=== PATIENT | male | born 1950 | race Caucasian/White ===

== ENCOUNTER 2024-03-17 04:58 | Emergency (ER) | payer OTHER, SELFPAY ==
[2024-03-17 05:01] VITALS: BP 131/84
[2024-03-17 05:59] VITALS: BP 151/67; BMI 21.5
--- NOTE | 2024-03-17 07:22 | ED.GENMED ---
History of Present Illness
General
Chief Complaint: Musculo-Skeletal Complaint
Source: patient
Exam Limitations: none
Time Seen by Provider: 03/17/24 07:01
Nursing documentation reviewed up to this point in time: agreed with
History of Present Illness
History of Present Illness:
The patient is a very pleasant 73-year-old man who just removal of an ingrown toenails from his right big toe done by his branch lending manager this past morning, which was 4 days ago. He comes in stating that the pain has been so severe over the
last few nights, despite taking NSAIDs and Tylenol, that he has been unable to sleep. Patient reports tingling at the bottom of his right big toe as well as radiating pain down the bottom of his right foot towards his ankle. Patient denies fever
and chills. He denies any active drainage or blood from the dressing. Patient reports that he has had multiple ingrown toe nails removed and he always has 'lots of bleeding' with the procedure.
Past History
Past History
ED Past Medical History: Other (Hemorrhoids)
ED Past Surgical History: Other (Hernia surgery)
Social History
Tobacco: Non-smoker
Alcohol: None
Drug: None
Personal:
Living: with family
Employment: Other
Family History
Family History: Other
Review of Systems
Review of Systems
Allergies reviewed?: Yes
All Other Systems: ROS reviewed and negative except as documented in HPI and ROS
Constitutional: Reports no symptoms
EENT: Reports no symptoms
Respiratory: Reports no symptoms
Cardiac: Reports no symptoms
: Reports no symptoms
Musculoskeletal: Reports muscle stiffness
Skin: Reports no symptoms
Neurological: Reports no symptoms
Endocrine: Reports no symptoms
Hematologic/Lymphatic: Reports no symptoms
Psychiatric: Reports no symptoms
Phy Exam
Physical Exam
Physical Exam:
Physical Exam
General: no apparent distress, not acutely ill. Well and comfortable appearing
Neck: supple.
Heart: s1/s2 regular rate and rhythm, strong pulses in right foot
Lungs: no acute respiratory distress.
Abdomen: Soft
Neuro: alert and oriented. no focal neurological deficits
Skin: Very small amount of erythema along bottom of right big toe as well as medial aspect of right big toe. No active bleeding. No active drainage
Psychiatric: well kept. interactive and cooperative
Extremities: no edema. No streaking redness of foot, both top and bottom. No obvious swelling or deformity of right big toe
Course
Orders/Labs/Results
Orders:
Orders
03/17/24 07:21
Clindamycin HCl [Cleocin] 300 mg PO NOW STA
Oxycodone/Acetaminophen [Percocet 5/325] 1 tablet PO NOW STA
Vital Signs
Initial and Last Documented VS:
Initial Vital Signs
Temp Pulse Resp BP Pulse Ox
98.1 F 70 16 131/84 100
03/17/24 05:01 03/17/24 05:01 03/17/24 05:01 03/17/24 05:01 03/17/24 05:01
Last Documented Vital Signs
Temp Pulse Resp BP Pulse Ox
98.1 F 67 14 151/67 99
03/17/24 05:01 03/17/24 05:59 03/17/24 05:59 03/17/24 05:59 03/17/24 05:59
MDM/Problems Addressed
Differential Diagnosis Includes:
Drink recirculation due to tightness of bandage around right big toe, right big toe hematoma, right pinky toe abscess, right big toe cellulitis
MDM/Problems Addressed:
Patient presents with acute pain of right big toe after ingrown toenail removed
Acute Exacerbation and/or Progression of Chronic Illness:
Patient is acutely hypertensive, likely due to pain and anxiety
*Pulse Oximetry
Patient hypoxic: no
*EKG
Interpreted by ED Provider?: NA
*Coverstitch Machine Operator Interpretation
Rate: Coverstitch Machine Operator- N/A
*Critical Care Note
Total Time (30-74mins, 75-104mins- exclusive of procedures): Not Applicable
Data Reviewed
Review of Other/Old Records Reveals: Radiology Studies (Left foot x-ray reviewed by me from August 2023 which shows no soft tissue infection)
Source: patient and spouse
Patient Management
Social determinants of health affecting care: Living situation and Strong social support
Escalation/DeEscalation of care consider admission/obs:
Patient's dressing removed by me. There is no active bleeding, no purulent discharge, and no streaking redness. There is minimal redness around the wound site. Therefore, we will start patient on clindamycin for possible early right big toe
cellulitis. Patient due to see podiatry tomorrow morning which he reassures me that he will follow-up with his appointment. Patient has excellent pulses of his right foot. Wound redressed by me with gauze and Curlex
ED Attending Note
-
Portions of this chart may have been created with voice recognition software.� Occasional wrong word or��sound alike� substitutions may have occurred due to the inherent limitations of voice recognition software.
Discharge Plan
Departure
Patient Disposition: Home (Routine Discharge)
Date of Disposition: 03/17/24
Time of Disposition: 07:22
Patient with high blood pressure during this ER visit?: Yes
Condition: Good
Covid-19: Not Applicable
Discharge Problem:
Ingrowing toenail of right foot
Instructions: Ingrown Toenail ED
Prescriptions:
New
clindamycin HCl 300 mg capsule
300 mg PO TID 7 Days Qty: 21 0RF
oxycodone 5 mg tablet
5 mg PO BID PRN (Reason: Pain) Qty: 5 0RF
No Action
Vitamin K2 M7
1 tab PO DAILY
cholecalciferol (vitamin D3) [Vitamin D3] 25 mcg (1,000 unit) Capsule
25 mcg PO Q48H
PreserVision AREDS-2 250-90-40-1 mg Capsule
1 tab PO Q48H
polyethylene glycol 3350 [Miralax] 17 gram Powder In Packet
8.5 g PO DAILY@1500
Referrals:
Feng Porter DO [Family Provider] -
Activity Restrictions/Additional Instructions:
Follow-up with your branch lending manager as scheduled tomorrow morning.
Interventions
Interventions:
*Risk Screen - Suicide Last Done: 03/17/24 05:01
*General Assessment Last Done: 03/17/24 05:01
*Neglect/Abuse Screening Last Done: 03/17/24 05:01
ED- Fall Risk Assessment Last Done: 03/17/24 05:01
*ED COVID-19 Vaccine History Last Done: 03/17/24 05:01
*Nursing Disposition Last Done: 03/17/24 07:35
ED-Musculoskeletal Assessment Last Done: 03/17/24 05:59
Discharge Date and Time
Discharge Date/Time: 03/17/24 07:35
Print Language: CHADIAN
[2024-03-17] MEDS: PERCOCET 5/325 1 TABLET PO (07:35)
[2024-03-17] MEDS: CLEOCIN 300 MG PO (07:35)
== END 2024-03-17 07:35 | disposition home or self-care (01) ==
LOC: EMR 04:58
PROVIDERS: EMERGENCY PHYSICIAN Emergency Medicine; FAMILY PHYSICIAN Family Medicine
DX: L60.0 Ingrowing nail (principal); R03.0 Elevated blood-pressure reading, without diagnosis of hypertension
CPT/HCPCS: 99283

== ENCOUNTER 2024-05-13 17:40 | Emergency (ER) | payer OTHER, SELFPAY ==
[2024-05-13 17:52] VITALS: BP 132/78
--- NOTE | 2024-05-13 18:29 | ED.GENMED ---
History of Present Illness
General
Chief Complaint: Skin Problem
Source: patient
Time Seen by Provider: 05/13/24 17:56
History of Present Illness
History of Present Illness:
73-year-old male presenting emergency department for evaluation after he was moving a bookshelf and a piece of glass excellently cut his right hand in 3 separate areas. Patient states that due to the bleeding decided to come to the ER for further
evaluation. He is right-hand dominant. Tetanus is up-to-date.
Past History
Past History
ED Past Medical History: Other (Hemorrhoids)
ED Past Surgical History: Other (Hernia surgery)
Social History
Tobacco: Non-smoker
Alcohol: None
Drug: None
Personal:
Living: with family
Employment: Other
Family History
Family History: Other
Review of Systems
Review of Systems
All Other Systems: ROS reviewed and negative except as documented in HPI and ROS
Phy Exam
Physical Exam
Physical Exam:
GENERAL: Alert , in no apparent distress
EYE: conjunctiva clear
Head: Normocephalic atraumatic
NECK: Supple,
ENT: mmm.
LUNGS: no acute respiratory distress
NEUROLOGICAL: Alert and oriented
SKIN: Warm and dry, 3 separate small lacerations. 1st laceration just proximal to 2nd MCP, U-shaped, superficial, no active bleeding, measures 9mm in size. 2nd laceration in between web spacing of 2nd and 3rd digit measuring 5mm in size. 3rd
laceration is proximal to 5th MCP. 3mm, superficial and without active bleeding
MUSCULOSKELETAL: well perfused.
PSYCH: Normal and appropriate interaction.
Scores
Heart Failure Risk
Heart Failure Risk Score: Not Applicable
Heart Score for Chest Pain Patients
STEMI patient?: Not applicable
Withdrawal Assessment of Alcohol
Withdrawal Assessment Completed?: Not applicable
Course
Vital Signs
Initial and Last Documented VS:
Initial Vital Signs
Temp Pulse Resp BP Pulse Ox
98.6 F 75 16 132/78 98
05/13/24 17:52 05/13/24 17:52 05/13/24 17:52 05/13/24 17:52 05/13/24 17:52
Last Documented Vital Signs
Temp Pulse Resp BP Pulse Ox
98.6 F 75 16 132/78 98
05/13/24 17:52 05/13/24 17:52 05/13/24 17:52 05/13/24 17:52 05/13/24 17:52
Procedures
Laceration Closure
Right Hand:
Status of Wound: clean
Size of Wound in cm: 0.9
Description of Wound Edges: sharp
Preparation: cleaned with saline
Type of Closure: Dermabond-skin glue
MDM/Problems Addressed
MDM/Problems Addressed:
73-year-old male presenting to the emergency department for evaluation of 3 superficial lacerations that occurred to his right hand on glass. Lacerations repaired as above without any difficulty. Dressing placed over the wounds. Patient advised
on wound care. Otherwise stable for discharge home.
*Pulse Oximetry
Patient hypoxic: no
*Critical Care Note
Total Time (30-74mins, 75-104mins- exclusive of procedures): Not Applicable
ED Attending Note
-
Portions of this chart may have been created with voice recognition software.� Occasional wrong word or��sound alike� substitutions may have occurred due to the inherent limitations of voice recognition software.
Discharge Plan
Departure
Patient Disposition: Home (Routine Discharge)
Date of Disposition: 05/13/24
Time of Disposition: 18:29
Patient with high blood pressure during this ER visit?: No
Discharge Problem:
Laceration of right hand
Instructions: Wound Care (DC)
Prescriptions:
No Action
Vitamin K2 M7
1 tab PO DAILY
cholecalciferol (vitamin D3) [Vitamin D3] 25 mcg (1,000 unit) Capsule
25 mcg PO Q48H
PreserVision AREDS-2 250-90-40-1 mg Capsule
1 tab PO Q48H
polyethylene glycol 3350 [Miralax] 17 gram Powder In Packet
8.5 g PO DAILY@1500
clindamycin HCl 300 mg capsule
300 mg PO TID 7 Days Qty: 21 0RF
oxycodone 5 mg tablet
5 mg PO BID PRN (Reason: Pain) Qty: 5 0RF
Interventions
Interventions:
*Risk Screen - Suicide Last Done: 05/13/24 17:41
*Neglect/Abuse Screening Last Done: 05/13/24 17:41
Discharge Date and Time
Print Language: MONGOLIAN
== END 2024-05-13 18:54 | disposition home or self-care (01) ==
LOC: EMR 17:40
PROVIDERS: EMERGENCY PHYSICIAN Emergency Medicine; FAMILY PHYSICIAN Family Medicine
DX: S61.411A Laceration without foreign body of right hand, initial encounter (principal); W25.XXXA Contact with sharp glass, initial encounter; Y93.89 Activity, other specified; Z88.1 Allergy status to other antibiotic agents; Z88.2 Allergy status to sulfonamides; Z91.048 Other nonmedicinal substance allergy status
CPT/HCPCS: 99282; 12001

== ENCOUNTER 2024-05-15 09:44 | Emergency (ER) | payer OTHER, SELFPAY ==
[2024-05-15 09:44] VITALS: BMI 21.5
[2024-05-15 09:56] VITALS: BP 133/70
--- NOTE | 2024-05-15 11:03 | ED.SKININJ ---
HPI-Injury
General
Chief Complaint: Skin Problem
Source: patient
Exam Limitations: none
Time Seen by Provider: 05/15/24 10:47
Nursing documentation reviewed up to this point in time: agreed with
History of Present Illness-Injury
Initial Injury comments:
73 yo male seen here 2 days ago for three small cuts to dorsum of right hand from a broken glass that feel from shelf in his garage, presents for increasing pain, redness, swelling, red streak up the arm. Denies fever/chills. Initially told staff he
was UTD with Tdap but now states he's not sure.
Past History
Past History
ED Past Medical History: Other (Hemorrhoids)
ED Past Surgical History: Other (Hernia surgery)
Social History
Tobacco: Non-smoker
Alcohol: None
Drug: None
Personal:
Living: with family
Employment: Other
Family History
Family History: Other
Review of Systems
Review of Systems
Allergies reviewed?: Yes
All Other Systems: ROS reviewed and negative except as documented in HPI and ROS
Constitutional: Denies fever or chills
Skin: Reports other (Increasing pain, redness, swelling, red streak up the forearm from 2-day old wound dorsum of right hand)
Neurological: Denies numbness
Phy Exam
Physical Exam
Physical Exam:
PHYSICAL EXAMINATION:
General: no apparent distress, not acutely ill
Neuro: alert and oriented.
Psychiatric: well kept. interactive and cooperative
Musculoskeletal: All tendon function is intact but about 50% limited in the ring and fifth fingers due to swelling and pain. Moves with ease
Skin: Warm, pink. Right hand dorsum with relatively small abrasions noted over fourth and fifth finger MCP joint and in the webspace of those fingers. There is approximately 4 x 3 cm area of erythema surrounding these, the
right fifth finger is mildly swollen and yellowish-green with old ecchymosis. There is 1 mild pink streak extending three quarters up the forearm. Reddened area is more for observation. Distal neurovascular intact with brisk capillary refill of
fingers.
Course
Orders/Labs/Results
Orders:
Orders
05/15/24 11:06
Tetanus/Diphth/Acelpertussis [Adacel] 0.5 ml IM .ONCE ONE
05/15/24 11:20
CeFAZolin 1 GRAM [Ancef] 1 gram in 5 ml IV NOW
Vital Signs
Initial and Last Documented VS:
Initial Vital Signs
Temp Pulse Resp BP Pulse Ox
98.2 F 66 18 133/70 100
05/15/24 09:56 05/15/24 09:56 05/15/24 09:56 05/15/24 09:56 05/15/24 09:56
Last Documented Vital Signs
Temp Pulse Resp BP Pulse Ox
98.5 F 69 16 129/78 99
05/15/24 12:00 05/15/24 12:00 05/15/24 12:00 05/15/24 12:00 05/15/24 12:00
MDM/Problems Addressed
Differential Diagnosis Includes:
Cellulitis
MDM/Problems Addressed:
73 yo male seen here 2 days ago for three small cuts to dorsum of right hand from a broken glass that feel from shelf in his garage, presents for increasing pain, redness, swelling, red streak up the arm. Denies fever/chills. Initially told staff he
was UTD with Tdap but now states he's not sure.
Afebrile, NAD
Hand soaked in hydrogen peroxide and Betadine solution for 15 minutes.
No bony tenderness, adequate ROM, pt states the glass broke and sliced into his hand, it did not shatter, no small pieces, does not think any glass got under the skin. No indication for imaging at this time.
Reddened area marked for observation.
There is no drainage or bleeding at this time
Nonstick and gauze dressing applied
Rx for Cefdinir sent to pt pharmacy. Pt has no true allergies to PCN drugs. Will be sure to instruct him to take probiotic or eat yogurt daily to avoid diarrhea
12:30 p.m.
No sign of adverse reaction to IV Ancef
*Critical Care Note
Total Time (30-74mins, 75-104mins- exclusive of procedures): Not Applicable
ED Attending Note
-
Portions of this chart may have been created with voice recognition software.� Occasional wrong word or��sound alike� substitutions may have occurred due to the inherent limitations of voice recognition software.
Discharge Plan
Departure
Patient Disposition: Home (Routine Discharge)
Date of Disposition: 05/15/24
Time of Disposition: 12:30
Patient with high blood pressure during this ER visit?: No
Condition: Good
Discharge Problem:
Infection, wound status post trauma, Cellulitis of right hand
Instructions: Cellulitis (Skin Infection), Adult (DC)
Prescriptions:
New
cefdinir 300 mg capsule
300 mg PO BID Qty: 14 0RF
No Action
Vitamin K2 M7
1 tab PO DAILY
cholecalciferol (vitamin D3) [Vitamin D3] 25 mcg (1,000 unit) Capsule
25 mcg PO Q48H
PreserVision AREDS-2 250-90-40-1 mg Capsule
1 tab PO Q48H
polyethylene glycol 3350 [Miralax] 17 gram Powder In Packet
8.5 g PO DAILY@1500
clindamycin HCl 300 mg capsule
300 mg PO TID 7 Days Qty: 21 0RF
oxycodone 5 mg tablet
5 mg PO BID PRN (Reason: Pain) Qty: 5 0RF
doxycycline hyclate 100 mg capsule
100 mg PO BID Qty: 14 0RF
Referrals:
Feng Porter DO [Family Provider] - Follow up in 2-3 days
Activity Restrictions/Additional Instructions:
As we discussed, change the dressing daily, wash with soap and water, allow the area to dry very well and replace dressing.
I sent a prescription to your pharmacy for cefdinir to take twice a day
Eat yogurt daily or take a probiotic while on Cefdinir to minimize chance of diarrhea
Keep the hand elevated to the level of your heart or slightly higher in next 2 days to minimize swelling and throbbing pain.
Seek medical care immediately for worsening swelling, pain, pus drainage, fever, chills or feeling sicker in any way.
Interventions
Interventions:
*Risk Screen - Suicide Last Done: 05/15/24 09:56
*General Assessment Last Done: 05/15/24 09:56
*Neglect/Abuse Screening Last Done: 05/15/24 09:56
ED- Fall Risk Assessment Last Done: 05/15/24 09:44
*Nursing Disposition Last Done: 05/15/24 12:35
ED-Skin Assessment Last Done: 05/15/24 11:47
Discharge Date and Time
Discharge Date/Time: 05/15/24 12:35
Print Language: SRI LANKAN
[2024-05-15 12:00] VITALS: BP 129/78
[2024-05-15] MEDS: ANCEF 5 IV (12:03)
[2024-05-15] MEDS: ADACEL 0.5 ML IM (12:05)
== END 2024-05-15 12:35 | disposition home or self-care (01) ==
LOC: EMR 09:44
PROVIDERS: EMERGENCY PHYSICIAN Emergency Medicine; FAMILY PHYSICIAN Family Medicine
DX: L03.113 Cellulitis of right upper limb (principal); B99.9 Unspecified infectious disease; Z23 Encounter for immunization; M19.90 Unspecified osteoarthritis, unspecified site; M48.00 Spinal stenosis, site unspecified; Z88.2 Allergy status to sulfonamides; Z88.8 Allergy status to other drugs, medicaments and biological substances; Z91.048 Other nonmedicinal substance allergy status
CPT/HCPCS: 99284; 96374; 90471; 90715

== ENCOUNTER 2024-05-16 09:59 | Emergency (ER) | payer OTHER, SELFPAY ==
[2024-05-16 10:14] VITALS: BP 131/62
[2024-05-16 10:28] VITALS: BMI 21.8
--- NOTE | 2024-05-16 10:57 | ED.GENMED ---
History of Present Illness
General
Chief Complaint: Skin Problem
Source: patient
Exam Limitations: none
Time Seen by Provider: 05/16/24 10:33
Nursing documentation reviewed up to this point in time: agreed with
History of Present Illness
History of Present Illness:
Patient is a 73-year-old male who presents to the ER for evaluation. Patient was initially seen here in the ER 05/13 3 days ago for laceration. He had Dermabond skin glue applied to this laceration however presented back to the ER yesterday for
redness and red streaking to the area. Patient was given 1 g of IV cefazolin here in the ER yesterday and sent home with a prescription for cefdinir. Patient reports he is allergic to multiple drugs. He took 1 dose of cefdinir last night and
started with itchy rash. He reports rash is to his chest abdomen groin and legs. He denies any difficulty breathing. Denies any tongue or lip swelling. He has not taken any Benadryl.
He does report however that the redness has improved and the red streaking is now resolved. He does not want to take another antibiotic until this allergic reaction resolves. He denies any fever or chills.
Past History
Past History
ED Past Medical History: Other (Hemorrhoids)
ED Past Surgical History: Other (Hernia surgery)
Social History
Tobacco: Non-smoker
Alcohol: None
Drug: None
Personal:
Living: with family
Employment: Other
Family History
Family History: Other
Review of Systems
Review of Systems
Allergies reviewed?: Yes
All Other Systems: ROS reviewed and negative except as documented in HPI and ROS
Constitutional: Reports no symptoms; Denies fever, fatigue or chills
Musculoskeletal: Reports other (wound to right hand w/ wound adhesive; mild surrounding erythema mild swelling no lymphangitis )
Skin: Reports other (see above )
Neurological: Reports no symptoms
Psychiatric: Reports no symptoms
Phy Exam
General Physical Exam
General Presentation: no apparent distress
General age: appears stated age
General Skin: warm and dry
General Habitus: normal
General Mental: alert
General Hydration: appears well hydrated
Neurological Exam
Neurological Exam: alert and oriented x3
Musculoskeletal Exam
Musculoskeletal Exam: other (Patient with wound to dorsal right hand around the right fifth distal metacarpal area mild swelling mild erythema to the area no lymphangitis able to flex and extend all fingers)
Skin Exam
Skin Exam: normal color and warm/dry
Psychiatric Exam
Psychiatric Exam: normal mood/affect
Course
Orders/Labs/Results
Orders:
Orders
05/16/24 11:00
Diphenhydramine [Benadryl] 50 mg PO NOW STA
05/16/24 11:05
Dexamethasone Pf [Decadron] 10 mg PO NOW STA
Vital Signs
Initial and Last Documented VS:
Initial Vital Signs
Temp Pulse Resp BP Pulse Ox
98.1 F 71 20 131/62 100
05/16/24 10:14 05/16/24 10:14 05/16/24 10:14 05/16/24 10:14 05/16/24 10:14
Last Documented Vital Signs
Temp Pulse Resp BP Pulse Ox
98.1 F 71 20 131/62 100
05/16/24 10:14 05/16/24 10:14 05/16/24 10:14 05/16/24 10:14 05/16/24 10:14
Identification Officer consulted with Physician
Identification Officer consulted with physician?: Yes
Name of Physician Consulted: Jade
MDM/Problems Addressed
Differential Diagnosis Includes:
Not limited to allergic reaction, cellulitis/wound infection
MDM/Problems Addressed:
Patient is a 73-year-old male presented to the ER for evaluation. Patient initially had a laceration to his dorsal right hand several days ago was seen here had Dermabond applied presented yesterday with infection to the wound and red streaking.
Patient was given 1 dose of Ancef in the ER yesterday and sent home on cefdinir. He is allergic to several antibiotics. He started with allergic reaction and is obvious rash to the area though no obvious hives. No difficulty breathing he is
nontoxic lungs are clear.
Patient does report that the lymphangitis/red streaking has resolved and the wound seems to be less red. Will treat the allergic reaction with Benadryl as he has not taken anything for symptoms along with 1 dose of oral Decadron. He wishes to hold
off on any additional antibiotics until the allergic reaction is resolved which is reasonable. Since patient feels that the redness has resolved will have patient closely monitor the wound however I did review with patient the importance of taking
the new antibiotic if there are concerning symptoms of infection. He does have an appoint with his family doctor who can look at this wound tomorrow.
Case discussed with ED physician evaluated patient will DC with a prescription for doxycycline with close outpatient follow-up with his PCP will also give hand physician for f/u. Patient instructed on stopping present antibiotic, cefdinir he may
continue Benadryl and start doxycycline.
*Critical Care Note
Total Time (30-74mins, 75-104mins- exclusive of procedures): Not Applicable
Data Reviewed
Review of Other/Old Records Reveals: Other (previous 2 ED visits )
ED Attending Note
-
Portions of this chart may have been created with voice recognition software.� Occasional wrong word or��sound alike� substitutions may have occurred due to the inherent limitations of voice recognition software.
Discharge Plan
Departure
Patient Disposition: Home (Routine Discharge)
Date of Disposition: 05/16/24
Time of Disposition: 11:27
Patient with high blood pressure during this ER visit?: No
Condition: Fair
Covid-19: Not Applicable
Discharge Problem:
Allergic reaction, wound infection
Instructions: Cellulitis (Skin Infection), Adult (DC), Allergic Reaction ED
Prescriptions:
New
doxycycline hyclate 100 mg capsule
100 mg PO BID Qty: 14 0RF
No Action
Vitamin K2 M7
1 tab PO DAILY
cholecalciferol (vitamin D3) [Vitamin D3] 25 mcg (1,000 unit) Capsule
25 mcg PO Q48H
PreserVision AREDS-2 250-90-40-1 mg Capsule
1 tab PO Q48H
polyethylene glycol 3350 [Miralax] 17 gram Powder In Packet
8.5 g PO DAILY@1500
clindamycin HCl 300 mg capsule
300 mg PO TID 7 Days Qty: 21 0RF
oxycodone 5 mg tablet
5 mg PO BID PRN (Reason: Pain) Qty: 5 0RF
cefdinir 300 mg capsule
300 mg PO BID Qty: 14 0RF
Referrals:
Jac Quiles MD [Active] -
Neo Ibrahim MD [Active] -
Feng Porter DO [Family Provider] -
Activity Restrictions/Additional Instructions:
As discussed for allergic reaction you may continue to take Benadryl 25 to 50 mg every 4-6 hours. A prescription for a new antibiotic was given to you. Take as directed as discussed. Stop cefdinir. Follow-up with your family doctor as scheduled
tomorrow for wound check and further evaluation however also as discussed please follow-up with hand physician for wound check/infection of right hand. Return to the ER for any worsening of symptoms if increasing redness swelling red streaking pain
fever chills drainage from right hand wound.
Interventions
Interventions:
*Risk Screen - Suicide Last Done: 05/16/24 10:14
*General Assessment Last Done: 05/16/24 10:28
*Neglect/Abuse Screening Last Done: 05/16/24 10:28
ED- Fall Risk Assessment Last Done: 05/16/24 10:28
*ED COVID-19 Vaccine History Last Done: 05/16/24 10:28
ED-Skin Assessment Last Done: 05/16/24 10:28
Discharge Date and Time
Print Language: FRENCH
[2024-05-16] MEDS: BENADRYL 50 MG PO (11:07)
[2024-05-16] MEDS: DECADRON 10 MG PO (11:08)
[2024-05-16 11:43] VITALS: BP 128/71
== END 2024-05-16 11:45 | disposition home or self-care (01) ==
LOC: EMR 09:59
PROVIDERS: EMERGENCY PHYSICIAN Emergency Medicine; FAMILY PHYSICIAN Family Medicine
DX: R21 Rash and other nonspecific skin eruption (principal); T36.1X5A Adverse effect of cephalosporins and other beta-lactam antibiotics, initial encounter; L03.113 Cellulitis of right upper limb
CPT/HCPCS: 99283

== ENCOUNTER → 2024-07-10 09:41 | Outpatient (REF) | payer OTHER, SELFPAY | LOC: HWRAD 09:41 | PROVIDERS: ATTENDING PHYSICIAN Podiatrist Foot & Ankle Surgery; FAMILY PHYSICIAN Family Medicine | DX: M19.071 Primary osteoarthritis, right ankle and foot (principal) | CPT/HCPCS: 73660 ==